=== PATIENT | female | born 1970 | race Caucasian/White ===

== ENCOUNTER 2019-11-20 13:37 | Emergency (ER) | payer OTHER ==
[~2019-11-20] VITALS: Ht 160 cm; Wt 81.8 kg
[2019-11-20] MEDS ORDERED: ketamine 10mg/ml 20ml inj 25 MG in normal saline 100ml IV soln 100.0 ML IV ONE (13:40)
[2019-11-20] MEDS ORDERED: fentaNYL/PF 50MCG/1 ML 2ML syringe ONE (13:41)
[2019-11-20] MEDS ORDERED: ondansetron/PF 4mg/2ml inj IV ONE (13:45)
[2019-11-20] MEDS ORDERED: MIDAZolam 5mg/ml 2ml vial IV ONE (13:45)
[2019-11-20] MEDS ORDERED: bacitracin 15gm ointment TP ONE ×2 (13:45→14:00)
[2019-11-20] MEDS: fentaNYL/PF 50MCG/1 ML 2ML syringe IV PRN ×2 (14:05→14:35)
[2019-11-20] MEDS ORDERED: KETAMINE IV ONE (14:10)
[2019-11-20] MEDS ORDERED: NORMAL SALINE IV ONE (14:10)
[2019-11-20 14:36] VITALS: BP 174/102
== END 2019-11-20 14:59 | disposition short-term general hospital (02) ==
LOC: ER 13:38
DX: T21.21XA Burn of second degree of chest wall, initial encounter (principal); T20.27XA Burn of second degree of neck, initial encounter; T24.201A Burn of second degree of unspecified site of right lower limb, except ankle and foot, initial encounter; T24.202A Burn of second degree of unspecified site of left lower limb, except ankle and foot, initial encounter; T23.201A Burn of second degree of right hand, unspecified site, initial encounter; T31.40 Burns involving 40-49% of body surface with 0% to 9% third degree burns; X08.8XXA Exposure to other specified smoke, fire and flames, initial encounter; Y93.89 Activity, other specified; Y92.89 Other specified places as the place of occurrence of the external cause; Y99.9 Unspecified external cause status
CPT/HCPCS: 16020; 96365; 96375; 96376; 99291; J2250; J2405; J3010; J7040